=== PATIENT | female | born 1965 | race Caucasian/White ===

== ENCOUNTER → 2019-06-05 | Day surgery (SDC) | payer BC ==
[2019-06-05 07:33] VITALS: RESP 16
[2019-06-05 08:55] VITALS: BP 137/85; PULSE 70; TEMP 97.9
--- NOTE | 2019-06-05 09:13 | USB ---
EXAMINATION TYPE: US biopsy breast VAD LT, MG diagnostic mammo LT wo CAD, US breast aspiration single LT DATE OF EXAM: 06/05/2019 CLINICAL HISTORY: R92.8 abn leonel. TECHNIQUE: Ultrasound guided core biopsy of left breast. COMPARISON: Outside left breast limited ultrasound dated 01/19/2019 FINDINGS: The procedure of ultrasound guided core biopsy was explained to the patient. Benefits, alternatives, and risks were discussed. An informed consent was then obtained. Preprocedural timeout was performed. Preprocedural left breast ultrasound demonstrated the cystic area of pain at the 1:00 position measuring 2.7 cm but additionally demonstrated a hypoechoic mass at the 8:00 position in the left breast in zone a measuring 0.3 cm with irregular borders for which biopsy was recommended. This was discussed with the patient prior to the biopsy. The patient agreed to left breast aspiration for symptomatic relief of pain at the 1:00 position and biopsy at the 8:00 position in the left breast. Site A: The patient was placed in supine positioning for imaging and for the procedure. The overlying skin was prepped and draped in usual sterile fashion. 4 cc of 1% lidocaine was used as anesthetic into the skin and subcutaneous tissue up to a 2.7 cm cystic mass at the 1:00 position in the left breast. Under ultrasound guidance, an 18-gauge spinal needle was advanced into the cystic mass with aspiration of approximately 4 cc of hemorrhagic fluid. Following this, a wing shaped biopsy marker was left at the site of aspiration. Site B: The patient was placed in supine positioning for imaging and for the procedure. The overlying skin was prepped and draped in usual sterile fashion. 6 cc of 1% lidocaine was used as anesthetic into the skin and subcutaneous tissue up to a 0.3 cm mass at the 8:00 position in the left breast. Under ultrasound guidance, a 12-gauge vacuum assisted biopsy gun device was used to obtain 4 core samples. Following this, a coil-shaped biopsy marker was left at the site of biopsy. The patient tolerated the procedure well without any immediate complication. The patient was kept in the radiology department for short stay after the procedure and then discharged home in stable condition. IMPRESSION: Successful, uncomplicated ultrasound guided aspiration at the 1:00 position and core biopsy at the 8:00 position in the left breast, full pathology results to follow. Pathology Results: Benign LEFT BREAST CYST AT 1:00 POSITION, FINE NEEDLE ASPIRATION: Consistent with origin an apocrine cyst showing debris and macrophages. Cells cytologically diagnostic of neoplasm are not identified. LEFT BREAST LESION AT 8:00 POSITION, NEEDLE BIOPSY: Fibrocystic changes with usual duct hyperplasia (UDH) and apocrine metaplasia. Recommendation Follow up ultrasound of the left breast in 6 months. KARMEN
== END ==
LOC: RADUSWWP 07:13
PROVIDERS: ATTEND Surgery
DX: N60.12 Diffuse cystic mastopathy of left breast (principal); N60.82 Other benign mammary dysplasias of left breast; Z88.5 Allergy status to narcotic agent; Z88.1 Allergy status to other antibiotic agents
CPT/HCPCS: 88108; 88305; 77065; 76942; 19000; 19083; A4648; J2001

== ENCOUNTER → 2020-05-06 | Outpatient (CLI) | payer BC ==
[2020-05-06 09:50] VITALS: BP 130/86; PULSE 83; RESP 18; TEMP 98.3
--- NOTE | 2020-05-06 10:13 | P.CONS ---
History of Present Illness - Reason for Consult Consult date: 05/06/20 - Chief Complaint Left shoulder pain - History of Present Illness This is a 54-year-old lady with a few months history of left shoulder pain which started with no precipitating events. The pain starts at the shoulder level and goes down to the left elbow intermittently .the patient describes her pain as pricking in quality. She denies any numbness in her left arm. She also denies any pain in her neck. The patient had an injection of steroids in her left shoulder joint which improved her pain slightly. She was referred to us by Dr. York after she had an MRI of the cervical spine which showed the following: Disc narrowing and desiccation at C4 5 through C67 with osteophyte formation and congenital spinal canal stenosis. There is uncovertebral hypertrophy facet degeneration with ligamentum flavum hypertrophy at C5 6 level with mild to moderate canal stenosis and mild cord flattening and foraminal stenosis at this level. The patient denies any bowel or bladder dysfunction. The pain occasionally wakes her up at night. She denies any weight loss. She denies taking any anticoagulants except Motrin for her pain which does not help much as she states. Past Medical History Past Medical History: Diabetes Mellitus, GERD/Reflux History of Any Multi-Drug Resistant Organisms: None Reported Past Surgical History: Hysterectomy Additional Past Surgical History / Comment(s): Bladder suspension, ectopic pregnany Past Anesthesia/Blood Transfusion Reactions: No Reported Reaction Smoking Status: Never smoker - Past Family History Mother Family Medical History: Cancer, Myocardial Infarction (ID) Father Family Medical History: Cancer Medications and Allergies Home Medications Medication Instructions Recorded Confirmed Type Ibuprofen [Motrin] 800 mg PO Q8H 05/24/19 05/06/20 History Losartan [Cozaar] 25 mg PO DAILY 05/24/19 05/06/20 History Omeprazole 20 mg PO DAILY 05/24/19 05/06/20 History glipiZIDE [Glucotrol] 5 mg PO AC-BRKFST 05/24/19 05/06/20 History busPIRone HCL 5 mg PO BID 05/06/20 05/06/20 History Allergies Allergy/AdvReac Type Severity Reaction Status Date / Time cephalexin [From Keflex] AdvReac Rash/Hives Unverified 06/05/19 07:22 codeine AdvReac Unknown Unverified 06/05/19 07:22 Physical Exam Vitals: Vital Signs Temp Pulse Resp BP Pulse Ox 05/06/20 09:43 98.3 F 83 18 130/86 98 Intake and Output 05/05/20 05/06/20 05/06/20 22:59 06:59 14:59 Other: Weight 68.039 kg - Constitutional General appearance: average body habitus - EENT Eyes: PERRLA - Neurologic Neuro exam of the upper extremities showed mildly decreased muscle strength for left elbow flexion and extension to 4 out of 5. Absent triceps reflex bilaterally, absent biceps reflex on the right nonpainful side. No tenderness around the left shoulder joint Normal range of motion of the shoulder joint on the left side No tenderness in the left trapezius muscle or in the cervical paravertebral musculature. Normal range of motion of the cervical spine Neurologic: CNII-XII intact Assessment and Plan Plan: This is a 53-year-old lady with a pole diagnosis of cervical spondylosis without myelopathy due to facet arthropathy. 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 And cervical disc desiccation. The patient denies any numbness in the left arm. The patient may benefit from a diagnostic cervical medial branch block for C4, C5, and C7 on the left side under fluoroscopic guidance. If this procedure improves her pain by a case 50% but does not last long enough then we can plan on doing RFA in the future. I thank you for the referral
== END | disposition home or self-care (01) ==
LOC: PNWHC3 09:34
PROVIDERS: ATTEND Anesthesiology
DX: M48.02 Spinal stenosis, cervical region (principal); M47.812 Spondylosis without myelopathy or radiculopathy, cervical region; E11.9 Type 2 diabetes mellitus without complications; K21.9 Gastro-esophageal reflux disease without esophagitis; Z88.5 Allergy status to narcotic agent; Z88.1 Allergy status to other antibiotic agents; Z79.1 Long term (current) use of non-steroidal anti-inflammatories (NSAID); Z79.899 Other long term (current) drug therapy; Z79.84 Long term (current) use of oral hypoglycemic drugs
CPT/HCPCS: 99211

== ENCOUNTER 2020-05-31 11:45 | Day surgery (SDC) | payer BC ==
[2020-05-31 12:37] VITALS: RESP 16; TEMP 97.1
[2020-05-31] MEDS ORDERED: LACTATED RINGERS 1,000 ML IV SCH (12:43)
[2020-05-31] MEDS ORDERED: LIDOCAINE 1% (10MG/ML) FOR IV START INTRADERMA ONE (12:44)
[2020-05-31 12:45] LABS: Glucose,Whole Blood 177 mg/dL (75-99)
[2020-05-31] MEDS ORDERED: fentaNYL (PF) 50 MCG/ML 2 ML AMP ONE (13:31)
[2020-05-31] MEDS ORDERED: MIDAZOLAM 2 MG/2 ML VIAL ONE (13:31)
[2020-05-31] MEDS ORDERED: ROPIVACAINE 5MG/ML 20ML VIAL ONE (13:31)
[2020-05-31] MEDS ORDERED: IOPAMIDOL M200 10 ML VIAL ONE (13:31)
[2020-05-31] MEDS ORDERED: TRIAMCINOLONE ACETONIDE 40 MG/ML 1 ML VIAL ONE (13:31)
--- NOTE | 2020-05-31 13:54 | P.PCN ---
Date of Procedure: 05/31/20 Description of Procedure: PREOPERATIVE DIAGNOSIS : Cervicalgia with Facet Arthropathy without myelopathy POSTOPERATIVE DIAGNOSIS: same PROCEDURE: first Diagnostic cervical medial branch block with fluoroscopy at left C5, C6, C7 which covers facets C5-6, C6-7 ANESTHESIA: Local anesthetic; moderate IV sedation with Versed and fentanyl, sedation time 16 min Fluoroscopy was used for the procedure and images were saved in the radiology portion of the chart. Surgeon: Twin Panda MD PROCEDURE INDICATION: Cervical pain without radiculopathy, not responsive to conservative management. PROCEDURE DESCRIPTION: the patient was seen and identified in the preop holding area , risks and benefits and possible complications of the procedure and alternatives were discussed with the patient, and the patient agreed to proceed with the procedure and signed the consent . IV was started , vital signs were monitored during the procedure and fluoroscopy was used to maximize the benefit and accuracy of the needle placement, and sedation was given to decrease patient anxiety. Patient was taken to the procedure room and placed in prone position. An AP fluoroscopic synthetic chemist film was taken to identify the dens, the C5, C6, C7 vertebral bodies, and the waists of the articular pillars at the aforementioned levels. An AP view was utilized to highlight the waists of the articular pillars at these levels. The skin was prepped with chlorhexidine and draped in the usual sterile fashion. The skin and subcutaneous tissue overlying the above levels were anesthetized using a 25-gauge 1-1/2-inch needle with 1% preservative free lidocaine for a total volume of 1 ml per level. An AP fluoroscopic synthetic chemist film was taken to identify the dens, the C5, C6, C7 vertebral bodies, and the center of the centroid at the aforementioned levels. A lateral view was utilized to highlight the centroids at these levels. The skin was prepped with chlorhexidine and draped in the usual sterile fashion. The skin and subcutaneous tissue overlying the above levels were anesthetized using a 25- gauge 1-1/2-inch needle with 1% preservative free lidocaine for a total volume of 1 ml per level. An 25-gauge 3.5" Quinke needle was advanced, coaxially, in the lateral view until the needle tip was noted to slide into the waste of the articular pillar. The needles were advanced until bony contact was felt and the tip of the Quinke needle was confirmed to be in the center of the articular pillars at the aforeme ntioned levels. The needle positions were confirmed with AP and lateral fluoroscopic views. 0.2 mL of Isovue 200 per level was injected which revealed no vascular uptake and after negative aspiration, 0.5 mL of ropivacaine along with Kenalog 40 mg was injected at each level and the needle subsequently removed . Total of 40 mg kenalog used. At the end of the procedure and the needles were removed and a bandage applied after the skin was cleaned. The patient was taken to recovery room in stable condition and monitors in the recovery room for 20-30 minutes and discharged home in stable condition after discharge criteria met and patient will follow up in clinic in 2 weeks EBL: Minimal COMPLICATION: None.
--- NOTE | 2020-05-31 14:13 | FL ---
Fluoroscopy INDICATION: Pain FINDINGS: Fluoroscopy time: 25 seconds. Images obtained: 2. IMPRESSIONS: 1. Documentation of fluoroscopy.
[2020-05-31 14:17] VITALS: BP 140/88; PULSE 78
[2020-05-31] MEDS ORDERED: IV FLUID CONTINUATION 1,000 ML IV ONE (14:17)
== END 2020-05-31 14:32 | disposition home or self-care (01) ==
LOC: ORPAIN 11:45
PROVIDERS: ATTEND Anesthesiology
DX: M47.812 Spondylosis without myelopathy or radiculopathy, cervical region (principal); E11.9 Type 2 diabetes mellitus without complications; K21.9 Gastro-esophageal reflux disease without esophagitis; Z88.5 Allergy status to narcotic agent; Z88.1 Allergy status to other antibiotic agents; Z79.1 Long term (current) use of non-steroidal anti-inflammatories (NSAID); Z79.899 Other long term (current) drug therapy; Z90.79 Acquired absence of other genital organ(s)
CPT/HCPCS: 64490; 64491; J2250; J3010; 99152

== ENCOUNTER → 2020-06-26 | Outpatient (CLI) | payer BC ==
[2020-06-26 10:56] VITALS: BP 128/82; PULSE 100; RESP 18; TEMP 98.3
--- NOTE | 2020-06-26 11:11 | P.PN ---
Subjective Progress Note Date: 06/26/20 This is follow-up visit for this 55 years old female with a chronic history of severe neck pain, is diagnosed with cervical spondylosis with cervical facet arthropathy without myelopathy, status post diagnostic medial branch block on the left side, at C5 ,C6 and C7 , patient reported that her pain before the block was 7-8/10 dropped to 0/10 after the block, she denies any motor or sensory deficit she denies any fever or night sweats Objective - Vital Signs Vital signs: Vital Signs Temp 98.3 F 06/26/20 10:54 Pulse 100 06/26/20 10:54 Resp 18 06/26/20 10:54 BP 128/82 06/26/20 10:54 Pulse Ox 99 06/26/20 10:54 - Exam Physical Examinations : -Constitutiona : Cooperative , not in acute distress . -HEENT : nech : supple , no Lymphadenopathy , normal thyroid size . : eyes : no ptosis , no icterus, no photophobia . - neurologic : Cranial nerve II to XII intact , no focal neurological deffecit . -psychatric : alert , oriented X 3 , appropriate affect , intact judgment and insight . -Lymphatic : no Lymphadenopathy . - musculoskeltal : Cervical Spine motor stregnth in the deltoid and biceps, normal right side , normal Left side motor stregnth biceps and the wrist extensors normal right side ,normal left side . motor stregnth in the triceps muscle . normal Right side , normal Left side deep tendon reflexes normal at the biceps , normal at Brachioradialis , normal at triceps. cervical facet loading test: Positive on the left . Lumber spine moter stegnth lower extremities ,thigh and legs 5/5 Right side , 5/5 Left side Assessment and Plan Plan: Assessment and plan=1-cervical spondylosis and cervical facet arthropathy without myelopathy 2-cervical degenerative disc disease. Patient had 100% improvement of her neck pain af ter the first diagnostic medial branch block at C5 , C6 and C7 She will be scheduled to have a second diagnostic medial branch block at C5, C6, C7 - PQRS measures = - Patient's medications are documented in the chart. -Tobacco use is negative and counseling.Given. -Patient's has not received pneumococcal vaccine. -Advanced care planning discussed, patient not eligible. -Opiate contract not signed. -Pain positive and follow-up visit/procedure is scheduled. -Patient's blood pressure measured [ 128/82 ] , and documented in the record ,and patient will follow up with the primary care. -Patient's weight was measured and body mass index [24.2 ]within the normal limits and counseling was done. and patient instructed to follow-up with the primary care physician. -Patient was not identified as an unhealthy alcohol user Time with Patient: Less than 30
== END ==
LOC: PNWHC3 10:45
PROVIDERS: ATTEND Specialist
DX: M47.812 Spondylosis without myelopathy or radiculopathy, cervical region (principal); M50.30 Other cervical disc degeneration, unspecified cervical region
CPT/HCPCS: 99211

== ENCOUNTER 2020-08-02 08:58 | Day surgery (SDC) | payer BC ==
[2020-07-31 12:53] VITALS: BMI 24.2
[2020-08-02] MEDS ORDERED: LACTATED RINGERS 1,000 ML IV ONE (09:17)
[2020-08-02] MEDS ORDERED: LIDOCAINE 1% (10MG/ML) FOR IV START INTRADERMA ONE (09:17)
[2020-08-02 09:28] LABS: Glucose,Whole Blood 253 mg/dL (75-99)
[2020-08-02 09:30] VITALS: RESP 16; TEMP 97
[2020-08-02] MEDS ORDERED: DEXAMETHASONE SOD PHOSPHATE 10 MG/ML 1 ML VIAL ONE (10:01)
[2020-08-02] MEDS ORDERED: fentaNYL (PF) 50 MCG/ML 2 ML AMP ONE (10:01)
[2020-08-02] MEDS ORDERED: IOPAMIDOL M200 10 ML VIAL ONE (10:01)
[2020-08-02] MEDS ORDERED: MIDAZOLAM 2 MG/2 ML VIAL ONE (10:01)
[2020-08-02] MEDS ORDERED: ROPIVACAINE 5MG/ML 20ML VIAL ONE (10:01)
--- NOTE | 2020-08-02 10:22 | P.PCN ---
Date of Procedure: 08/02/20 Description of Procedure: PREOPERATIVE DIAGNOSIS : Cervicalgia with Facet Arthropathy without myelopathy POSTOPERATIVE DIAGNOSIS: same PROCEDURE: second Diagnostic cervical medial branch block with fluoroscopy at left C5, C6, C7 which covers facets C5-6, C6-7 ANESTHESIA: Local anesthetic; moderate IV sedation with anesthesia time Fluoroscopy was used for the procedure and images were saved in the radiology portion of the chart. Surgeon: Twin Panda MD PROCEDURE INDICATION: Cervical pain without radiculopathy, not responsive to conservative management. PROCEDURE DESCRIPTION: the patient was seen and identified in the preop holding area , risks and benefits and possible complications of the procedure and alternatives were discussed with the patient, and the patient agreed to proceed with the procedure and signed the consent . IV was started , vital signs were monitored during the procedure and fluoroscopy was used to maximize the benefit and accuracy of the needle placement, and sedation was given to decrease patient anxiety. Patient was taken to the procedure room and placed in prone position. An AP fluoroscopic groundskeeping maintenance worker film was taken to identify the dens, the C5, C6, C7 vertebral bodies, and the waists of the articular pillars at the aforementioned levels. An AP view was utilized to highlight the waists of the articular pillars at these levels. The skin was prepped with chlorhexidine and draped in the usual sterile fashion. The skin and subcutaneous tissue overlying the above levels were anesthetized using a 25-gauge 1-1/2-inch needle with 1% preservative free lidocaine for a total volume of 1 ml per level. An AP fluoroscopic groundskeeping maintenance worker film was taken to identify the dens, the C5, C6, C7 vertebral bodies, and the center of the centroid at the aforementioned levels. A lateral view was utilized to highlight the centroids at these levels. The skin was prepped with chlorhexidine and draped in the usual sterile fashion. The skin and subcutaneous tissue overlying the above levels were anesthetized using a 25- gauge 1-1/2-inch needle with 1% preservative free lidocaine for a total volume of 1 ml per level. An 25-gauge 3.5" Quinke needle was advanced, coaxially, in the lateral view until the needle tip was noted to slide into the waste of the articular pillar. The needles were advanced until bony contact was felt and the tip of the Quinke needle was confirmed to be in the center of the articular pillars at the aforementioned levels. The needle positions were confirmed with AP and lateral fluoroscopic views. 0.2 mL of Isovue 200 per level was injected which revealed no vascular uptake and after negative aspiration, 0.5 mL of ropivacaine along with Dexemathasone 10 mg was injected at each level and the needle subsequently removed . Total of 10 mg dexamethasone used. At the end of the procedure and the needles were removed and a bandage applied after the skin was cleaned. The patient was taken to recovery room in stable condition and monitors in the recovery room for 20-30 minutes and discharged home in stable condition after discharge criteria met and patient will follow up in clinic in 2 weeks EBL: Minimal COMPLICATION: None.
[2020-08-02] MEDS ORDERED: IV FLUID CONTINUATION 1,000 ML IV ONE (10:25)
[2020-08-02 10:33] LABS: Glucose,Whole Blood 231 mg/dL (75-99)
[2020-08-02 10:58] VITALS: BP 138/84; PULSE 78
--- NOTE | 2020-08-02 13:23 | FL ---
EXAMINATION TYPE: FL guided pain mgmt statistic DATE OF EXAM: 08/02/2020 FLUOROSCOPY Fluoroscopy time of 26 seconds was used during left cervical facet block. 2 image/s document/s the p rocedure.
== END 2020-08-02 11:13 | disposition home or self-care (01) ==
LOC: ORPAIN 08:58
PROVIDERS: ATTEND Anesthesiology
DX: M47.812 Spondylosis without myelopathy or radiculopathy, cervical region (principal); E11.9 Type 2 diabetes mellitus without complications; Z79.84 Long term (current) use of oral hypoglycemic drugs; Z79.890 Hormone replacement therapy; Z88.1 Allergy status to other antibiotic agents; Z88.5 Allergy status to narcotic agent
CPT/HCPCS: 64490; 64491; J2250; J1100; J3010; Q9966; J2795

== ENCOUNTER → 2020-09-11 | Outpatient (CLI) | payer BC ==
[2020-09-11 14:30] VITALS: BP 132/84; PULSE 88; RESP 16; TEMP 97.9
--- NOTE | 2020-09-11 14:36 | P.PN ---
Subjective Progress Note Date: 09/11/20 This is a 55-year-old lady with history of axial neck pain with radiation to the left shoulder responsive to diagnostic cervical medial branch block on the left side at C5, C6 and C7 levels with more than 80% of pain relief . Her pain level today is 5 out of 10 on a scale from 0-10. Patient denies new-onset weakness, bowel/bladder incontinence, or any other signs or symptoms of cauda equina syndrome. There are no signs of acute intoxication, and no indications of medication diversion or overuse. In addition to above, 13-point review of systems is also negative for chest pain, shortness of breath, changes in vision, changes in hearing, new onset weakness, abdominal pain, diarrhea, extreme fatigue, malaise, fever, skin changes, homicidal or suicidal ideation, or bowel or bladder incontinence. Vital Signs: Reviewed in EMR Gen: AAOx3, NAD HEENT: PERRLA,hearing grossly normal Pulm: resp unlabored Neck: supple, trachea midline Neuro exam of the upper extremities: Normal muscle strength bilaterally Straight leg raising test: Lázaro's test: Range of motion of the lumbar spine: Facet loading test: Tenderness in the paravertebral musculature: Neuro: CN II-XII grossly intact, Imaging: Reviewed in EMR/chart Assessment: Cervical spondylosis without radiculopathy Left shoulder pain responsive to cervical medial branch block on the left side Plan: 1. Explanation: Opioid and psychological risk scores were reviewed. Diagnoses, prognoses, and multiple treatment options including but not limited to physical therapy, interventional therapies, adjuvant medical therapies, narcotic medication therapies, and surgery were discussed with the patient and all questions were answered to the patient's satisfaction. 2. Opioid agreement: Signed with the patient and the patient is warned not to use opioids while driving or before driving and not to combine opioids with benzodiazepines or alcohol. 3. Counseling: The patient was counseled extensively on SMOKING CESSATION, BODY MASS INDEX, EXERCISE. Specifically, the patient was instructed regarding the importance of smoking cessation, obesity, and exercise in the context of both chronic pain and overall health. 4. Procedures: Scheduled for left cervical medial branch RFA for levels C5, C6, and C7 under fluoroscopic guidance 5. Consultations: None 6. Investigations: None 7. Medications: None 8. Disposition: Proceed with the above-mentioned procedure
== END ==
LOC: PNWHC3 14:15
PROVIDERS: ATTEND Anesthesiology
DX: M47.812 Spondylosis without myelopathy or radiculopathy, cervical region (principal); Z88.5 Allergy status to narcotic agent; Z88.1 Allergy status to other antibiotic agents
CPT/HCPCS: 99211

== ENCOUNTER 2020-11-08 09:49 | Day surgery (SDC) | payer BC ==
[2020-11-07 09:41] VITALS: BMI 24.3
[~2020-11-08 09:49] MED LIST: LACTATED RINGERS 1,000 ML IV SCH
[2020-11-08 10:04] VITALS: TEMP 96.3
[2020-11-08 10:16] LABS: Glucose,Whole Blood 252 mg/dL (75-99)
[2020-11-08] MEDS ORDERED: INSULIN ASPART (NovoLOG) 100 UNIT/ML VIAL SQ ONE (10:16)
[2020-11-08] MEDS ORDERED: MIDAZOLAM 2 MG/2 ML VIAL ONE (10:29)
[2020-11-08] MEDS ORDERED: fentaNYL (PF) 50 MCG/ML 2 ML AMP ONE (10:29)
[2020-11-08] MEDS ORDERED: LIDOCAINE 1% INJ 10MG/ML (20 ML MDV) ONE (10:29)
[2020-11-08] MEDS ORDERED: IV FLUID CONTINUATION 1,000 ML IV ONE (11:14)
--- NOTE | 2020-11-08 11:24 | P.PCN ---
Date of Procedure: 11/08/20 Anesthesia: NAVI Surgeon: Samara Buck Pathology: none sent Condition: stable Disposition: PACU Description of Procedure: PREOPERATIVE DIAGNOSIS: Cervical spondylosis with Facet Arthropathy without myelopathy. POSTOPERATIVE DIAGNOSIS: Cervical spondylosis with Facet Arthropathy without myelopathy. PROCEDURES: left Radiofrequency thermocoagulation, C5,C6,and C7 medial branch with Fluroscopy Guidence ANESTHESIA: Local with 1% lidocaine; IV sedation by the anesthesia Department EBL: Minimal PROCEDURE INDICATION: The patient with neck pain secondary to cervical arthropathy who had more than 50% relief of her pain with previous diagnostic cervical medial branch block. PROCEDURE DESCRIPTION / TECHNIQUE: The patient was seen and identified in the preoperative area. Risks, benefits, complications, and alternatives were discussed with the patient, the patient agreed to proceed with the procedure and signed the consent. IV was started. Vital signs remained stable throughout the procedure. Patient was taken to the OR and time out was completed. The patient was placed in the prone position on the procedure table. A pillow was placed under the patients chest to increase the cervical interlaminar space. The cervical area was prepped and draped in the usual sterile fashion. Critical pause was taken. Vital signs were closely monitored during the procedure. Conscious sedation was used during the procedure to decrease patients anxiety. Using cross-table lateral fluoroscopy, the center of the trapezoid-shaped cervical pillars of C5,C6, and the superior articular process of C7 on the left side were identified, marked, and localized with 1% lidocaine. Subsequently, a 20 -rz radiofrequency cannula with a 10-mm active tip was advanced guided by fluoroscopy to the target points mentioned above. . Each site then underwent motor testing at 2 Hz and 0 to 3 volt with local stimulation, but no radicular symptoms down the arm. I then injected 1 ml of lidocaine 1% in each needle. Thereafter C3 ,C4 and C5 sites underwent radiofrequency thermocoagulation at 80 degrees celsius for 90 seconds . Cannulas were retracted. Skin was cleansed and bandages were applied. No steroids were used for this procedure because of the patient's poorly controlled diabetes. COMPLICATIONS: No acute complications. COMMENTS: A copy of needle placement was saved to the C-arm machine at the radiology department. DISPOSITION / PLANS: The patient was placed in a supine position and transferred to the recovery area in a stable condition for observation and was discharged from the recovery room after meeting discharge criteria. Home discharge instructions given to the patient by the staff.
[2020-11-08 11:29] VITALS: BP 130/87; PULSE 76; RESP 15
--- NOTE | 2020-11-08 11:30 | FL ---
EXAMINATION TYPE: FL guided pain mgmt statistic DATE OF EXAM: 11/08/2020 HISTORY: Cerv Rad Freq 39sec fluoro time,3 images to pacs.
[2020-11-08 11:51] LABS: Glucose,Whole Blood 207 mg/dL (75-99)
== END 2020-11-08 11:55 | disposition home or self-care (01) ==
LOC: ORPAIN 09:49
PROVIDERS: ATTEND Anesthesiology
DX: M47.812 Spondylosis without myelopathy or radiculopathy, cervical region (principal)
CPT/HCPCS: 64633; 64634; J2250; J2001; J3010

== ENCOUNTER → 2020-12-02 | Outpatient (CLI) | payer BC ==
[2020-12-02 10:38] VITALS: BP 142/94; PULSE 84; RESP 18; TEMP 98.2
--- NOTE | 2020-12-02 10:44 | P.PAINPG ---
Subjective Progress Note Date: 12/02/20 This is a 55-year-old lady with history of axial neck pain with radiation to the left shoulder, recently we performed left C5-6 and C6-7 RFA. She notes about 90-95% relief from this procedure she is very happy with this procedure overall. We discussed how often we can do these, I commented that generally we have to wait at least 6 months between procedures and she is understanding of that. Overall she is doing well. Patient denies new-onset weakness, bowel/bladder incontinence, or any other signs or symptoms of cauda equina syndrome. There are no signs of acute intoxication, and no indications of medication diversion or overuse. In addition to above, 13-point review of systems is also negative for chest pain, shortness of breath, changes in vision, changes in hearing, new onset weakness, abdominal pain, diarrhea, extreme fatigue, malaise, fever, skin jessica es, homicidal or suicidal ideation, or bowel or bladder incontinence. Vital Signs: Reviewed in EMR Gen: AAOx3, NAD HEENT: PERRLA,hearing grossly normal Pulm: resp unlabored Neck: supple, trachea midline Neuro exam of the upper extremities: Normal muscle strength bilaterally Facet loading test:negative Tenderness in the paravertebral musculature: negative Neuro: CN II-XII grossly intact, Imaging: Reviewed in EMR/chart Assessment: Cervical spondylosis without radiculopathy Left shoulder pain responsive to cervical medial branch block on the left side Plan: - In the future we can repeat left C5 C6 C7 radiofrequency ablation as needed I have spent 23 minutes on patient care today. The time was used to review the medical records including relevant urine studies and prescription history, review of the available imaging, evaluation and examination of the patient, coordination of care with the medical staff and if applicable referring physicians, as well as creation of the medical record. PQRS Measure Charge Sheet PQRS Narrative: Smoking Status Never smoker Pain Intensity [Left Shoulder] 0 Scale Used Numeric (1 - 10) Hx Alcohol Use (MH) No: Rare Home Medications: Ambulatory Orders Ibuprofen [Motrin] 800 mg PO Q8H PRN 05/24/19 Omeprazole 20 mg PO DAILY 05/24/19 glipiZIDE [Glucotrol] 5 mg PO AC-BRKFST 05/24/19 busPIRone HCL 5 mg PO BID PRN 01/25/21 Mv-Mn/FA/Bl Coh/Isoflav/Jujube [Estroven Menopause Caplet] 1 each PO DAILY 11/07/20 Controlled Substance Measures - Controlled Substance Measures Is patient prescribed a controlled substance at discharge?: No
== END ==
LOC: PNWHC3 10:30
PROVIDERS: ATTEND Anesthesiology
DX: M47.812 Spondylosis without myelopathy or radiculopathy, cervical region (principal); Z88.1 Allergy status to other antibiotic agents; Z88.5 Allergy status to narcotic agent
CPT/HCPCS: 99211

== ENCOUNTER → 2024-04-17 | Outpatient (CLI) | payer BC, OTHER ==
[2024-04-17 14:05] VITALS: BP 132/77; PULSE 99; RESP 16; TEMP 98.6
--- NOTE | 2024-04-17 14:36 | XR ---
EXAMINATION TYPE: XR cervical spine limited DATE OF EXAM: 04/17/2024 TECHNIQUE: Frontal, lateral, and open mouth view of the cervical spine are obtained. HISTORY: M54.12 RADICULOPATHY, CERVICAL REGION COMPARISON: None FINDINGS: The cervical spine is visualized in its entirety from C1 thru the top of T1 level, it is s traightened in alignment without evidence of acute fracture or dislocation. The pre-vertebral soft t issue appears within normal limits. The C1-C2 articulation is within normal limits on the open mouth view. Vertebral body heights and disc space heights are within normal limits. Moderate multilevel an terior spurring in the mid to lower cervical spine is seen. Overlying soft tissue is unremarkable. IMPRESSION: As above. [facility], , 04/17/2024 2:33 PM
--- NOTE | 2024-04-17 17:20 | P.PAINPG ---
PQRS Measure Charge Sheet Comment: HISTORY OF PRESENT ILLNESS: A 58 yr old female as a referral from Dr Medley presents today w severe and chronic neck pain > 3 mo secondary to radiculopathy, spondylosis and facet arthropathy without myelopathy for evaluation. Pt states pain level is provoked at 7 /10 in intensity, constant, localized in the lower cervical spine, predominantly axial, sharp in character w occasional shooting pain towards the shoulders and UEs. Pain is provoked by staying in 1 position for periods > 30 min. Pain is alleviated by PT x 6 wks which ended in 2022, physician guided home exercises 4-5 times weekly since 2022, medications (Neurontin, Ibu), repositioning and rest . Cervical disability score at 25. PMH: OA, IDDM II, GERD PSH: L C4-C6 RFA (2020), Hysterectomy, Bladder Suspension, Ectopic SH: Negative x3 FH: Mo- CA, NV. Fa- CA All: See list Meds: See list REVIEW OF ORGAN SYSTEMS: CONSTITUTIONAL: No fevers or chills. No recent weight loss. NEUROLOGICAL: + numbness and tingling along the distal extremities. No seizure disorders or headaches. MUSCULOSKELETAL: + pain PSYCHIATRIC: Denies current depression or suicidal thoughts. Physical Examinations : Constitutional : Cooperative , not in acute distress . Neurologic : Cranial nerve II to XII intact. No focal neurological deficits. Psychiatric : alert & oriented x 3. Matching mood & appropriate affect. Judgment & insight intact. Musculoskeletal : Cervical Spine Motor strength in the deltoid and biceps: Normal right side. Normal Left side Motor strength biceps and the wrist extensors: Normal right side . Normal left side Motor strength in the triceps muscle: Normal right side. Normal left side Deep tendon reflexes: Normal at the biceps. Normal at Brachioradialis. Normal at triceps Vertebral body tenderness to deep palpation over C6 Cervical facet loading test: positive bilaterally Spurling test: positive bilaterally Neck distraction test: positive bilaterally Clarice sign: positive bilaterally Lumbar spine Motor strength lower extremities ,thigh and legs 5/5 Right side , 5/5 Left side Deep tendon reflexes : Normal Knee Jerk. Normal Ankle Jerk Vertebral body tenderness over Canales Test positive Lumbar facet Loading Test: positive Right / positive Left Range of motion of the lumbar spine Flexion 30 degrees, extension 10 degrees Straight Leg Raise test: Left/ Right positive at degrees Jose test: positive right / positive left. Severe tenderness over the Sacroiliac joint on the Right / Left sides Gaenslen test: positive bilaterally Seated flexion test: positive bilaterally. Sacral spine : Severe tenderness over the Sacroiliac joint: right side / left side Range of motion: Flexion of the lumbar spine <60 degrees Range of motion: Extension of the lumbar spine <20 degrees Gaenslen's Test positive Jose test: positive right side / left side Thigh Thrust Test Sacral Thrust Test Imaging: None on file Assessment/ Plan : Cervical radiculopathy Recommendation of x ray cervical spine M54.12. All questions answered. I have spent greater than 30 minutes on patient care today. Dr Dickson was available by phone for the evaluation of this patient. The time was used to review the medical records including relevant urine studies and Prescription history (MAPs), review of the available imaging, evaluation and examination of the patient, coordination of care with the medical staff and if applicable referring physicians, as well as creation of the medical record PQRS Narrative: Smoking Status Never smoker Hx Alcohol Use (MH) No: Rare Home Medications: Ambulatory Orders Ibuprofen [Motrin] 800 mg PO Q8H PRN 05/24/19 Omeprazole 20 mg PO DAILY 05/24/19 glipiZIDE [Glucotrol] 5 mg PO AC-BRKFST 05/24/19 busPIRone HCL 5 mg PO BID PRN 05/06/20 Mv-Mn/FA/Bl Coh/Isoflav/Jujube [Estroven Menopause Caplet] 1 each PO DAILY 11/07/20 Controlled Substance Measures - Controlled Substance Measures Is patient prescribed a controlled substance at discharge?: No
== END ==
LOC: PNWHC3 13:33
PROVIDERS: ATTEND Specialist
DX: M54.12 Radiculopathy, cervical region (principal); G89.29 Other chronic pain; Z88.5 Allergy status to narcotic agent; Z88.1 Allergy status to other antibiotic agents
CPT/HCPCS: 72040; 99211

== ENCOUNTER → 2024-04-19 | Outpatient (CLI) | payer BC ==
--- NOTE | 2024-04-19 21:55 | MR ---
MRI CERVICAL SPINE: CLINICAL HISTORY: Neck pain that radiates into both arms and hands, occasional numbness. Cervical rad iculopathy. TECHNIQUE: Multiplanar, multisequence imaging of the cervical spine is performed without IV contrast. COMPARISON: Cervical spine x-ray April 17, 2024 FINDINGS: Sagittal images of the cervical spine show the craniocervical junction to appear within nor mal limits. The cervical and upper thoracic spinal cord is normal in course, caliber, and signal. V ertebral alignment is stable and satisfactory. The vertebral body and intravertebral disk heights ar e normal. The bone marrow signal intensity is within normal limits. Axial images at C2-C3 level shows uncovertebral facet degenerative change causing mild left-sided justin ral foraminal narrowing. Similar findings are noted at C3-C4 level. Axial images at the C4-C5 level show left paracentral disc protrusion mildly effacing the anterior th ecal sac and uncovertebral facet degenerative change causing mild bilateral neural foraminal narrowin g. Axial images at C5-C6 level shows lobulated posterior disc protrusion mildly effacing the anterior th ecal sac and uncovertebral facet degenerative change bilaterally causing [id number] bilateral n eural foraminal narrowing. Axial images at C6-C7 level shows broad-based posterior disc protrusion mildly facing anterior thecal sac and causing mild bilateral neural foraminal narrowing. Axial images at C7-T1 level appear within normal limits. IMPRESSION: Multilevel degenerative change in the cervical spine as detailed above. [facility], , 04/19/2024 9:53 PM
== END | disposition home or self-care (01) ==
LOC: RADMRIMAIN 20:45
PROVIDERS: ATTEND Specialist
DX: M50.10 Cervical disc disorder with radiculopathy, unspecified cervical region (principal); M99.71 Connective tissue and disc stenosis of intervertebral foramina of cervical region
CPT/HCPCS: 72141

== ENCOUNTER → 2024-05-10 | Outpatient (CLI) | payer BC ==
[2024-05-10 14:59] VITALS: BP 126/90; PULSE 104; RESP 16
--- NOTE | 2024-05-10 15:47 | P.PAINPG ---
PQRS Measure Charge Sheet Comment: HISTORY OF PRESENT ILLNESS: A 58 yr old female presents today w severe and chronic neck pain > 3 mo secondary to radiculopathy, spondylosis and facet arthropathy without myelopathy for MRI results. Pt states pain level is provoked at 7 /10 in intensity, constant, localized in the lower cervical spine, predominantly axial, sharp in character w occasional shooting pain towards the shoulders and BUEs. Pain is provoked by staying in 1 position for periods > 30 min. Pain is alleviated by PT x 6 wks which ended in 2022, physician guided home exercises 4-5 times weekly since 2022, medications, repositioning and rest . Interventional procedures include Medications include Neurontin, Ibu REVIEW OF ORGAN SYSTEMS: CONSTITUTIONAL: No fevers or chills. No recent weight loss. NEUROLOGICAL: + numbness and tingling along the distal extremities. No seizure disorders or headaches. MUSCULOSKELETAL: + pain PSYCHIATRIC: Denies current depression or suicidal thoughts. Physical Examinations : Constitutional : Cooperative , not in acute distress . Neurologic : Cranial nerve II to XII intact. No focal neurological deficits. Psychiatric : alert & oriented x 3. Matching mood & appropriate affect. Judgment & insight intact. Musculoskeletal : Cervical Spine Motor strength in the deltoid and biceps: Normal right side. Normal Left side Motor strength biceps and the wrist extensors: Normal right side . Normal left side Motor strength in the triceps muscle: Normal right side. Normal left side Deep tendon reflexes: Normal at the biceps. Normal at Brachioradialis. Normal at triceps Vertebral body tenderness to deep palpation over C6 Cervical facet loading test: positive bilaterally Spurling test: positive bilaterally C6- C7 Neck distraction test: positive bilaterally Clarice sign: positive bilaterally Lumbar spine Motor strength lower extremities ,thigh and legs 5/5 Right side , 5/5 Left side Deep tendon reflexes : Normal Knee Jerk. Normal Ankle Jerk Vertebral body tenderness over Canales Test positive Lumbar facet Loading Test: positive Right / positive Left Range of motion of the lumbar spine Flexion 30 degrees, extension 10 degrees Straight Leg Raise test: Left/ Right positive at degrees Jose test: positive right / positive left. Severe tenderness over the Sacroiliac joint on the Right / Left sides Gaenslen test: positive bilaterally Seated flexion test: positive bilaterally. Sacral spine : Severe tenderness over the Sacroiliac joint: right side / left side Range of motion: Flexion of the lumbar spine <60 degrees Range of motion: Extension of the lumbar spine <20 degrees Gaenslen's Test positive Jose test: positive right side / left side Thigh Thrust Test Sacral Thrust Test Imaging: MRI non contrast cervical spine from 04/19/24 reviewed Assessment/ Plan : C5*C7 posterior disc bulges Recommendation of MIRNA TFESI C6-C7 #1. Risks, benefits of procedure discussed and pt verbalized understanding. Protocol for discontinuation/ continuation of medications chelsey procedure discusse. All questions answered. I have spent greater than 30 minutes on patient care today. Dr Dickson was available by phone for the evaluation of this patient. The time was used to review the medical records including relevant urine studies and Prescription history (MAPs), review of the available imaging, evaluation and examination of the patient, coordination of care with the medical staff and if applicable referring physicians, as well as creation of the medical record PQRS Narrative: Smoking Status Never smoker Hx Alcohol Use (MH) No: Rare Home Medications: Ambulatory Orders Ibuprofen [Motrin] 800 mg PO Q8H PRN 05/24/19 Omeprazole 20 mg PO DAILY 05/24/19 glipiZIDE [Glucotrol] 5 mg PO AC-BRKFST 05/24/19 busPIRone HCL 5 mg PO BID PRN 05/06/20 Mv-Mn/FA/Bl Coh/Isoflav/Jujube [Estroven Menopause Caplet] 1 each PO DAILY 11/07/20 Controlled Substance Measures - Controlled Substance Measures Is patient prescribed a controlled substance at discharge?: No
== END ==
LOC: PNWHC3 14:08
PROVIDERS: ATTEND Specialist
DX: M50.30 Other cervical disc degeneration, unspecified cervical region (principal); Z88.5 Allergy status to narcotic agent; Z88.1 Allergy status to other antibiotic agents
CPT/HCPCS: 99211

== ENCOUNTER 2024-06-02 13:02 | Day surgery (SDC) | payer BC ==
[2024-06-02 14:17] VITALS: RESP 16; TEMP 97.4
[2024-06-02 14:22] LABS: Glucose,Whole Blood 176 mg/dL (70-110)
[2024-06-02] MEDS ORDERED: IOPAMIDOL M200 10 ML VIAL ONE (14:40)
[2024-06-02] MEDS ORDERED: DEXAMETHASONE SOD PHOSPHATE 10 MG/ML 1 ML VIAL ONE (14:40)
--- NOTE | 2024-06-02 15:10 | FL ---
EXAMINATION TYPE: FL guided pain mgmt statistic Intraoperative/procedural fluoroscopic services were provided. CLINICAL INDICATION:Female, 58 years old with history of M54.12 TRANSFORAMINAL EPIDURAL STEROID INJ; , [facility] FINDINGS: 2 fluoroscopic images of cervical transforaminal epidural steroid injection. No radiographi c evidence for complication. Total fluoroscopy time is 7.5 seconds. DAP: [id number] [id number] Please see the operative/procedural note for further details. [facility], , 06/02/2024 3:07 PM
[2024-06-02 15:17] VITALS: BP 140/85; PULSE 78
--- NOTE | 2024-06-02 16:45 | P.PCN ---
Date of Procedure: 06/02/24 Procedure(s) Performed: PREOPERATIVE DIAGNOSIS: 1-cervical radiculopathy . 2-cervical herniated disc disease. 3-cervical spondylosis with facet arthropathy without myelopathy 4-cervical foraminal stenosis POSTOPERATIVE DIAGNOSIS: Same as preop diagnosis PROCEDURE 1. Transforaminal epidural steroid injection under fluoroscopic guidance at right C6-7 level. (Fluoroscopy images stored on file in the radiology Department ) 2. Cervical epidurogram . ANESTHESIA: Local with 1% lidocaine 3 ml. EBL: Minimal PROCEDURE INDICATION: The patient with neck pain and radiculopathy symptoms unresponsive to conservative treatment. PROCEDURE DESCRIPTION / TECHNIQUE: The patient was seen and identified in the preoperative area. Risks, benefits, complications, and alternatives were discussed with the patient. The patient agreed to proceed with the procedure and signed the consent. , and vital signs were monitored during the procedure. Patient was taken to the OR and time out was completed. The patient was placed in the prone position on procedure table . The cervical area was prepped and draped in the usual sterile fashion. Critical pause was taken. Vital signs were closely monitored during the procedure. Using lateral fluoroscopy view , the Right C6-7 level was identified, and the skin and deeper tissues just below was localized with 1% lidocaine. Subsequently, a 22-gauge 3.5-inch spinal needle was advanced under a tunneled view fluoroscopic guidance just to the foraminal of C6-7 levels at 6 o'clock position, under lateral fluoroscopy, the needle was then advanced to the posterior border of the interforaminal space. After negative aspiration of CSF and blood and with no paresthesias, 1 mL Isovue 200 contrast dye was injected excellent epidurogram and outlining of the nerve root Subsequently, 1 mL of block solution containing 10 mg Dexamethasone and 1 mL of 0.9% normal saline PF was injected. Needle was removed mediately after I was done with the injection on the right side patient was complaining of severe nausea and vomiting and she has been is a vagal response, and she reported that she is not able to continue with the procedure on the left side for this reason the procedure was terminated after we then the right side transforaminal epidural steroid injection at C6-7 level, and patient will be scheduled in the future to have the procedure on the left side and she has to get some valium 5 mg orally before the procedure. At the end of the procedure, skin was cleansed, and bandages were applied. COMPLICATIONS:none DISPOSITION / PLANS: The patient was placed in a supine position and transferred to the recovery area in a stable condition for observation. There was no evidence of upper extremity motor or sensory deficit after the procedure. Patient was discharged from the recovery room after meeting discharge criteria. Home discharge instructions were given to the patient by the staff. The patient was reexamined prior to discharge. Patient had symptoms on both upper extremity, he was scheduled to have bilateral transforaminal epidural steroid injection at C6-7 level, I was able to do only the right side because patient developed vasovagal response during the procedure, and she had severe nausea, he was not able to complete the procedure on the left side, I did only right side C6-7 transforaminal epidural steroid injection
== END 2024-06-02 15:27 | disposition home or self-care (01) ==
LOC: ORPAIN 13:02
PROVIDERS: ATTEND Specialist
DX: M50.123 Cervical disc disorder at C6-C7 level with radiculopathy (principal); M47.22 Other spondylosis with radiculopathy, cervical region; M48.02 Spinal stenosis, cervical region
CPT/HCPCS: 64483; J1100; Q9966

== ENCOUNTER → 2024-06-19 | Outpatient (CLI) | payer BC ==
[2024-06-19 08:13] VITALS: BP 125/87; PULSE 95; RESP 20; TEMP 96.7
--- NOTE | 2024-06-19 16:48 | P.PAINPG ---
PQRS Measure Charge Sheet Comment: HISTORY OF PRESENT ILLNESS: A 59 yr old female presents today w severe and chronic neck pain > 3 mo secondary to radiculopathy, spondylosis and facet arthropathy without myelopathy for evaluation s/p R TFESI C6-C7 #1. Pt states she experienced 60% pain relief x 2 wks s/p procedure. Pt states pain level is provoked at 8 /10 in intensity, constant, localized in the lower cervical spine, predominantly axial, sharp in character w occasional shooting pain towards the shoulders. Pain is provoked by staying in 1 position for periods > 30 min. Pain is alleviated by PT x 6 wks which ended in 2022, physician guided home exercises 4-5 times weekly since 2022, medications, repositioning and rest . Interventional procedures include R TFESI C6-C7 x1 Medications include Neurontin, Ibu REVIEW OF ORGAN SYSTEMS: CONSTITUTIONAL: No fevers or chills. No recent weight loss. NEUROLOGICAL: + numbness and tingling along the distal extremities. No seizure disorders or headaches. MUSCULOSKELETAL: + pain PSYCHIATRIC: Denies current depression or suicidal thoughts. Physical Examinations : Constitutional : Cooperative , not in acute distress . Neurologic : Cranial nerve II to XII intact. No focal neurological deficits. Psychiatric : alert & oriented x 3. Matching mood & appropriate affect. Judgment & insight intact. Musculoskeletal : Cervical Spine Motor strength in the deltoid and biceps: Normal right side. Normal Left side Motor strength biceps and the wrist extensors: Normal right side . Normal left side Motor strength in the triceps muscle: Normal right side. Normal left side Deep tendon reflexes: Normal at the biceps. Normal at Brachioradialis. Normal at triceps Vertebral body tenderness to deep palpation over C6 Cervical facet loading test: positive bilaterally Spurling test: positive bilaterally C6- C7 Neck distraction test: positive bilaterally Clarice sign: positive bilaterally Lumbar spine Motor strength lower extremities ,thigh and legs 5/5 Right side , 5/5 Left side Deep tendon reflexes : Normal Knee Jerk. Normal Ankle Jerk Vertebral body tenderness over Canales Test positive Lumbar facet Loading Test: positive Right / positive Left Range of motion of the lumbar spine Flexion 30 degrees, extension 10 degrees Straight Leg Raise test: Left/ Right positive at degrees Jose test: positive right / positive left. Severe tenderness over the Sacroiliac joint on the Right / Left sides Gaenslen test: positive bilaterally Seated flexion test: positive bilaterally. Sacral spine : Severe tenderness over the Sacroiliac joint: right side / left side Range of motion: Flexion of the lumbar spine <60 degrees Range of motion: Extension of the lumb ar spine <20 degrees Gaenslen's Test positive Jose test: positive right side / left side Thigh Thrust Test Sacral Thrust Test Imaging: MRI non contrast cervical spine from 04/19/24 reviewed Assessment/ Plan : C5*C7 posterior disc bulges Recommendation of BL TFESI C6-C7 #2. Risks, benefits of procedure discussed and pt verbalized understanding. Protocol for discontinuation/ continuation of medications chelsey procedure discussed. All questions answered. I have spent greater than 30 minutes on patient care today. Dr Dickson was available by phone for the evaluation of this patient. The time was used to review the medical records including relevant urine studies and Prescription history (MAPs), review of the available imaging, evaluation and examination of the patient, coordination of care with the medical staff and if applicable referring physicians, as well as creation of the medical record PQRS Narrative: Smoking Status Never smoker Hx Alcohol Use (MH) No: Rare Home Medications: Ambulatory Orders Ibuprofen [Motrin] 800 mg PO Q8H PRN 05/24/19 Omeprazole 20 mg PO DAILY 05/24/19 glipiZIDE [Glucotrol] 5 mg PO AC-BRKFST 05/24/19 DULoxetine HCL [Cymbalta] 30 mg PO BID 06/01/24 Gabapentin [Neurontin] 300 mg PO BID 06/01/24 Semaglutide [Rybelsus] 7 mg PO DAILY 06/01/24 diazePAM [Valium] 5 mg PO DAILY 1 Days #2 tab 06/07/24 Controlled Substance Measures - Controlled Substance Measures Is patient prescribed a controlled substance at discharge?: No
== END ==
LOC: PNWHC3 07:59
PROVIDERS: ATTEND Specialist
DX: M50.222 Other cervical disc displacement at C5-C6 level (principal); M50.223 Other cervical disc displacement at C6-C7 level; Z88.1 Allergy status to other antibiotic agents; Z88.5 Allergy status to narcotic agent
CPT/HCPCS: 99212